=== PATIENT | female | born 1950 | race Caucasian/White ===

== ENCOUNTER 2018-09-21 17:16 | Emergency (ER) | payer SELFPAY ==
[~2018-09-21] VITALS: Ht 154.9 cm; Wt 73.0 kg
[2018-09-21] MEDS ORDERED: LISI-604 PO (17:26)
[2018-09-21 21:41] VITALS: BP 153/72
== END 2018-09-21 21:41 | disposition home or self-care (01) ==
LOC: ER 18:57
DX: I10 Essential (primary) hypertension (principal); E11.9 Type 2 diabetes mellitus without complications; E78.00 Pure hypercholesterolemia, unspecified
CPT/HCPCS: 99283